=== PATIENT | female | born 1975 | race Caucasian/White ===

== ENCOUNTER → 2018-06-07 | Outpatient (CLI) | payer BC | LOC: FIMAGING 12:26 | PROVIDERS: ATTEND Obstetrics & Gynecology | DX: N92.6 Irregular menstruation, unspecified (principal); D25.1 Intramural leiomyoma of uterus ==

== ENCOUNTER → 2018-08-18 | Outpatient (CLI) | payer BC | LOC: FIMAGING 12:39 | PROVIDERS: ATTEND Obstetrics & Gynecology | DX: Z12.31 Encounter for screening mammogram for malignant neoplasm of breast (principal) ==